=== PATIENT | male | born 1955 | race Caucasian/White ===

== ENCOUNTER 2019-08-14 02:11 | Outpatient (CLI) | payer OTHER, SELFPAY ==
--- NOTE | 2019-08-14 | DI.CTLCSR_ITS ---
EXAM: CT CHEST LUNG CANCER SCREEN CLINICAL HISTORY: The patient reportedly has a History of Smoking 30 pack years and presently smokes or has quit the past 15 years. TECHNIQUE: Imaging Protocol: Axial computed tomography images with coronal and sagittal reformatted images were created and reviewed COMPARISON: No exams were available for comparison FINDINGS: Tracheobronchial tree: Patent . Mediastinum and Kait: No dominant adenopathy or fluid collection. Pulmonary parenchyma: No consolidation or dominant measurable mass. Linear atelectasis or scarring in the right middle lobe. Lung Nodules: 4 millimeter peripheral right upper lobe nodule. There are few other scattered nodules measuring 3 millimeters or less.. No significant emphysematous changes are visible. Pleura: No effusion or pneumothorax. Heart: The heart is not dilated. Coronary artery calcifications are seen. Aorta: Thoracic aorta non-dilated.Mild calcification Upper abdomen: Unremarkable. Bones: Bilateral shoulder prostheses. Advanced degenerative changes in the thoracic spine. Soft Tissues: Mild bilateral gynecomastia.. IMPRESSION: Lung RADS Cat 1 - Negative: No nodules and definitely benign nodules Lung-RADS 1.0 CATEGORIES: Category 0 - Prior chest CT exam(s) being located for comparison. Category 1 - Annual screening in 12 months. No nodules or definitely benign nodules. Category 2 - Annual screening in 12 months. Benign appearance. Nodules with low likelihood of becomin g active cancer. Category 3 - 6-month follow-up. Probably benign. Short-term follow-up suggested. Nodules with low lik elihood of becoming active cancer. Category 4A - 3-month follow-up and CT/PET if >8 mm in size. Suspicious finding. Findings which requi re additional testing. Category 4B - Findings which require additional testing and tissue sampling. Suspicious finding. C Added to Any of the Above - History of prior lung cancer screening. S Added to Any of the Above - Significant unexpected other finding. RADIATION DOSE DELIVERED: Total DLP DATA REPOSITORY: All CT scans at this facility are submitted to the National Radiology Data Registry (NRDR) Dose Index Registry (DIR) with the [employer] (ACR). RADIATION OPTIMIZATION: All CT scans at this facility use at least one of these dose optimization te chniques: automated exposure control; mA and/or kV adjustment per patient size (includes targeted exa ms where dose is matched to clinical indication); or iterative reconstruction.
== END 2019-08-14 02:31 ==
PROVIDERS: PCP Nurse Practitioner Family; Visit Provider Nurse Practitioner Primary Care
DX: Z12.2 Encounter for screening for malignant neoplasm of respiratory organs (principal); F17.210 Nicotine dependence, cigarettes, uncomplicated; R91.8 Other nonspecific abnormal finding of lung field
CPT/HCPCS: G0297

== ENCOUNTER 2019-10-25 10:44 | Emergency (ER) | payer OTHER, SELFPAY ==
[2019-10-25] VITALS (17 sets, daily range): BP systolic 139–192; BP diastolic 70–89; PULSE 59–70; RESP 13–20; TEMP 36.1; O2SAT 91–97
--- NOTE | 2019-10-25 10:54 | ED.GENADUL_ITS ---
Discharge Plan Disposition Patient Disposition: HOME Condition: Stable Discharge Details Chief Complaint: Allergic Clinical Impression: Allergic reaction to insect sting Primary Care Provider: Fanta Guerrero ED Provider: Noe Cai Home Meds and New Rx's Prescriptions: New prednisone 20 mg tablet 40 mg PO DAILY 5 Days Qty: 10 RF: 0 Discharge Instructions Instructions: Insect Bite or Sting (ED) Additional Instructions: Please take prednisone as prescribed. You may use Benadryl at night if needed for itching. Return if you have difficulty swallowing or breathing, worsening swelling, or any other acute concerns. Medical Decision Making 64-year-old male reports stinging insect such as wasp that stung him in the right neck prior to arrival. Is a history of allergic reactions in the past and therefore seeks evaluation. He arrives with slight hypertension, otherwise reassuring vital signs, mild erythema and swelling to the right neck but no intraoral findings and no respiratory compromise. IV access established, patient given small fluid bolus, parenteral steroids and antihistamines and was observed. He improved. No dyspnea or wheezing. I will place him on a small burst of steroids to prevent recrudescence of disease. He understands homecare as well as indications to seek reevaluation. HPI General Mode of arrival: ambulatory . Date/Time Provider Initiated Documentation: 10/25/19 10:49 . Limitations to Documentation: no limitations . Information obtained by: patient . History of Present Illness 64 year old M presents to the emergency department with the chief complaint of Bee sting right neck with swelling, described as moderate, Quality is described as dull and constant, and is localized to the neck and right. Patient reports no radiation. Patient started experiencing this minute(s) and it has been constant. No relieving factors improve symptom(s), No exacerbating factors reported . Patient did receive the following treatments prior to arrival, none Related Data Home Medications Medication Instructions Recorded Confirmed prednisone 40 mg PO DAILY 5 Days #10 tab 10/25/19 Previous Rx's Medication Instructions Recorded prednisone 40 mg PO DAILY 5 Days #10 tab 10/25/19 Allergies Allergy/AdvReac Type Severity Reaction Status Date / Time bees Allergy Uncoded 10/25/19 10:52 General Stated Complaint: Allergic KVNG: 3 Review of Systems Narrative: 6 systems reviewed and otherwise negative Exam Narrative Exam Narrative: GEN: awake, alert, oriented 3. Pleasant, well groomed, in teractive. HEAD: Normocephalic, atraumatic ENT: Mucous membranes moist, oropharynx unremarkable, External ear exam unremarkable EYES: PERRL, EOMI NECK: Full ROM, no VENU, no menigismus. Mild erythematous region right neck with trace swelling. CHEST/RESP: Nontender, clear to auscultation bilateral, no wheeze/rhonchi/rales CARDIOVASCULAR: RRR, no murmur, rub ricky. 2+ Rad pulse bilateral ABDOMEN: Soft, nontender, no mass. +Bowel sounds EXT: Full ROM, no edema, no rash Neuro: Grossly normal neurologic exam, conversant, interactive. Psych: Speech fluent, thoughts congruent, affect normal Course Vital Signs Vital signs: Vital Signs Temperature 36.1 C L 10/25/19 10:47 Pulse 70 10/25/19 10:47 Respiratory Rate 16 10/25/19 10:47 Blood Pressure 192/89 H 10/25/19 10:47 Pulse Oximetry 96 10/25/19 10:47 Temperature 36.1 C L 10/25/19 10:47 Temperature Source Skin 10/25/19 10:47 Pulse 70 10/25/19 10:47 Respiratory Rate 16 10/25/19 10:47 Respiratory Effort Non-Labored 10/25/19 10:47 Blood Pressure 192/89 H 10/25/19 10:47 Blood Pressure Position Supine 10/25/19 10:47 Pulse Oximetry 96 10/25/19 10:47 Oxygen Delivery Method Room Air 10/25/19 10:47 Oxygen Flow Rate 0 10/25/19 10:47 Pain Level 5 10/25/19 10:47
[2019-10-25] MEDS: Normal Saline 1,000 ML 1000 ML IV (10:55)
[2019-10-25] MEDS: methylPREDNISolone SUCC 125 MG VIAL IVP (11:03)
[2019-10-25] MEDS: diphenhydrAMINE 50 MG/ML VIAL 25 MG IVP (11:04)
[2019-10-25] MEDS: Loratidine 10 MG TAB PO (11:05)
== END 2019-10-25 12:25 | disposition home or self-care (01) ==
PROVIDERS: Emergency Provider Emergency Medicine; PCP Nurse Practitioner Primary Care
DX: T63.441A Toxic effect of venom of bees, accidental (unintentional), initial encounter (principal); R22.1 Localized swelling, mass and lump, neck
CPT/HCPCS: 96361; 96374; 96375; 99284; J1200; J2930

== ENCOUNTER 2020-06-30 17:09 | Emergency (ER) | payer OTHER, SELFPAY ==
[2020-06-30] VITALS (19 sets, daily range): BP systolic 129–170; BP diastolic 68–83; PULSE 67–81; RESP 13–29; TEMP 36.1; O2SAT 91–96
--- NOTE | 2020-06-30 17:15 | DI.CT_ITS ---
EXAM: CT CHEST PE CTA CLINICAL HISTORY: R lung pain, Covid +. TECHNIQUE: Imaging Protocol: CT angiography of the chest was performed using pulmonary embolus lena col. Multi planar reconstructions were performed. CONTRAST MATERIAL: Intravenous: Omnipaque 350 Contrast volume: 77 cc COMPARISON: CT CT CHEST LUNG CANCER SCREEN from 08/14/2019 FINDINGS: CHEST: PULMONARY ARTERIES: There are no intraluminal filling defects to suggest acute pulmonary emboli. LUNGS: There are new patchy infiltrates throughout both lung driscoll involving all lobes, not present on the prior CT scan of August 2019.. There are no associated pleural effusions on either side. There are no significant focal findings in the trachea and mainstem bronchi. MEDIASTINUM: There is no hilar nor mediastinal adenopathy. Visualized thyroid unremarkable. CARDIAC: Heart size is normal. There is no pericardial effusion.Caliber of the thoracic aorta is wit hin normal limits. There is no evidence of shift of the interventricular septum. PARTIALLY VISUALIZED UPPERMOST ABDOMEN: No obvious findings OSSEOUS: No significant osseous lesions.Bilateral shoulder prostheses.. IMPRESSION: 1. Compared to the prior CT scan of August 2019 there are now prominent bilateral areas of infiltrate t hroughout both lung driscoll as described above, not associated with pleural effusions nor intrathoraci c lymphadenopathy..Recommend testing for Covid-19 RADIATION DOSE DELIVERED: LINK-TO-SR Total DLP DATA REPOSITORY: All CT scans at this facility are submitted to the National Radiology Data Registry (NRDR) Dose Index Registry (DIR) with the [employer] (ACR). RADIATION OPTIMIZATION: All CT scans at this facility use at least one of these dose optimization te chniques: automated exposure control; mA and/or kV adjustment per patient size (includes targeted exa ms where dose is matched to clinical indication); or iterative reconstruction.
--- NOTE | 2020-06-30 17:15 | RT.EKG_ITS ---
APPROVED REPORT Exam: Resting ECG Patient Location: E HR:71 bpm ECG Measurements Heart Rate 71 AXIS MN 140 P 43 QRSd 83 QRS 21 QT 379 T 3 QTc 412 Conclusion Sinus rhythm.. wandering baseline
--- NOTE | 2020-06-30 17:23 | NUR.NOTE ---
Nursing Note: [id number] GIRLFR)
--- NOTE | 2020-06-30 17:33 | W.ED.GENAD ---
Discharge Plan Disposition Patient Disposition: HOME Condition: Stable Discharge Details Clinical Impression: Pneumonia due to COVID-19 virus Primary Care Provider: Fanta Guerrero ED Provider: Ki Scott Home Meds and New Rx's Prescriptions: Continued atorvastatin 40 mg Tablet 40 mg PO DAILY RF: 0 venlafaxine 75 mg Capsule,Extended Release 24hr 75 mg PO DAILY RF: 0 sildenafil 100 mg Tablet 100 mg PO DAILY PRNRF: 0 allopurinol 300 mg Tablet 300 mg PO DAILY RF: 0 lisinopril 40 mg Tablet 40 mg PO DAILY RF: 0 buspirone 15 mg Tablet 15 mg PO TID RF: 0 Discharge Instructions Instructions: Pulse Oximetry (ED), COVID-19 (Coronavirus Disease 2019) (ED) Additional Instructions: Laboratory values here in the ER did not reveal any obvious emergent process. Your oxygen level has stayed in the mid 90s during her ER visit and you are not requiring any supplemental oxygen. I am sending you home with a pulse oximetry finger probe. Mwxp-lbk-fpqtacd medications such as Tylenol and/or Motrin as directed for discomfort. Plenty of fluids to avoid dehydration. Rest, keep your body the opportunity to fight this virus. Please watch for new or worsening symptoms and return to the ER for any concerns. As we discussed, your CT confirms that you have COVID-19 pneumonia. You are highly contagious, please continue to quarantine as we discussed. I would like you to contact your primary care provider tomorrow to discuss your ER evaluation and discuss outpatient reevaluation. Medical Decision Making 65-year-old gentleman with [place] history of hypertension, hyperlipidemia, gout, diagnosed with Covid on 06-20, symptoms began 06-18. He is presenting today for worsening and ongoing symptoms such as body aches, dry cough with shortness of breath, fatigue, simply not feeling well. He feels as though he should be feeling better by now. He appears well, nontoxic. Pulse in the 70s, O2 sat 95% on room air. Vital signs reveal mild tachypnea however during my evaluation there is no evidence of tachypnea. He is slightly hypertensive. Will obtain IV access, obtain CBC, CMP, EKG, single troponin, given his right sided lung pain will obtain CTA for further evaluation of potential PE. Laboratory values are unremarkable for any obvious emergent process. CTA read by radiology as no pulmonary embolism. Peripheral bilateral consolidative foci and groundglass opacities, consistent with pneumonia, likely viral-atypical. Discussed case with Dr. Cai. Patient has had symptoms for over 10 days, not a candidate for monoclonal antibodies. Instead will give 10 IV Decadron. We will also provide the patient with a finger pulse oximeter and instruct patient to return to the ER if his O2 sat drops below 90. We discussed that he is highly contagious and discussed continuing to quarantine. Patient understands that his symptoms may go on for several weeks; however, he was given strict return precautions. We discussed conservative jetx-hxc-wmdjmdo measures, resting, plenty of fluids. He will reach out to his primary care provider tomorrow to discuss his ER visit and ongoing symptoms. Medical Records Medical records reviewed: Yes I reviewed the patient's medical records. Imaging Data Radiologic Study: Attestation: I personally reviewed and interpreted this imaging study as follows: Imaging: X-Ray Radiologist's impression: No PE. Peripheral bilateral consolidative foci in groundglass opacities, consistent with pneumonia, likely atypical-viral. Lab Data Lab results reviewed: Yes I reviewed the patient's lab results. Lab results narrative: Laboratory Tests Range/Units 06/30/20 06/30/20 17:35 17:35 WBC (4.4-10.8) 10^3/uL 4.16 L RBC (4.36-5.78) 10^6/uL 4.26 L Hgb (13.5-17.5) g/dL 12.8 L Hct (40.0-50.0) % 38.3 L MCV (80-95) fL 89.9 MCH (27.0-33.0) pg 30.0 MCHC (32.0-36.0) % 33.4 RDW (11.8-14.1) % 12.3 Plt Count (130-400) 10^3/uL 174 MPV (8.0-11.0) fL 10.2 Immature Gran % 0.5 Neutrophils % 67.6 Lymphocytes % 19.7 Monocytes % 11.3 Eosinophils % 0.7 Basophils % 0.2 Nucleated RBC % % 0 Absolute Neutrophils (1.2-6.7) 10^3/uL 2.81 Absolute Lymphocytes (1.2-3.4) 10^3/uL 0.82 L Absolute Monocytes (0.1-0.8) 10^3/uL 0.47 Absolute Eosinophils (0.0-0.7) 10^3/uL 0.03 Absolute Basophils (0.0-0.2) 10^3/uL 0.01 Sodium (136-145) mmol/L 138 Potassium (3.5-5.1) mmol/L 4.4 Chloride (98-107) mmol/L 101 Carbon Dioxide (21.0-32.0) mmol/L 27.2 Anion Gap (3-11) mmol/L 9.8 BUN (7-18) mg/dL 19 H Creatinine (0.70-1.30) mg/dL 1.0 Estimated GFR/1.73 m2 (mL/min/1.73m2) >= 60.00 Glucose (74-106) mg/dL 101 Calcium (8.5-10.1) mg/dL 8.2 L Total Bilirubin (0.2-1.0) mg/dL 0.4 AST (15-37) U/L 38 H ALT (16-63) U/L 38 Alkaline Phosphatase (46-116) U/L 132 H Troponin I (<0.06) ng/mL < 0.05 Total Protein (6.4-8.2) g/dL 7.3 Albumin (3.4-5.0) g/dL 3.5 ECG Data Attestation: I personally reviewed and interpreted this ECG (s) as follows: Interpretation: Please see official report by Dr. Cai. Sinus rhythm, ventricular to 71. HPI General Mode of arrival: ambulatory. Date/Time Provider Initiated Documentation: 06/30/20 17:11. Limitations to Documentation: no limitations. Information obtained by: patient. HPI Narrative: This is a 65-year-old gentleman with [place] history of hyperlipidemia, hypertension, gout, presenting to the ER for evaluation. He states that he developed symptoms on 06-18-20 that included mild headache and body aches. He subsequently was tested for Covid on 06-20 and tested positive. He states that since that time he feels as though his symptoms are worsening rather than improving. He reports anterior chest wall pain with coughing, a dry cough associated with shortness of breath, diffuse worsening body aches, and what he describes as right lung pain that travels into his back. He reports increased fatigue. He has taken lzhu-viw-utxoyvx medications with minimal relief. He denies current headache, visual changes, neck pain, chest pain, productive cough, abdominal pain, nausea, vomiting, lower back pain, change in bowel or bladder function, pain or swelling in his calves. Patient is concerned that he may be developing pneumonia on top of his Covid and believes that he likely requires antibiotics. Related Data Home Medications Medication Instructions Recorded Confirmed allopurinol 300 mg PO DAILY 10/25/19 06/30/20 atorvastatin 40 mg PO DAILY 10/25/19 06/30/20 buspirone 15 mg PO TID 10/25/19 06/30/20 lisinopril 40 mg PO DAILY 10/25/19 06/30/20 sildenafil 100 mg PO DAILY PRN 10/25/19 10/25/19 venlafaxine 75 mg PO DAILY 10/25/19 06/30/20 Allergies Allergy/AdvReac Type Severity Reaction Status Date / Time bees Allergy Uncoded 06/30/20 17:20 General Stated Complaint: RespSymp KVNG: 3 Review of Systems Constitutional Constitutional: Reports fatigue, Denies fever(s), Reports headache(s) and Denies weakness ENT Ears, Nose, Mouth, and Throat: Reports headache(s) and Denies neck pain Cardiovascular Cardiovascular: Reports chest pain and Reports dyspnea Respiratory Respiratory: Reports cough, Reports dyspnea and Denies wheezing Gastrointestinal Gastrointestinal: Denies abdominal pain, Denies nausea and Denies vomiting Musculoskeletal Musculoskeletal: Reports back pain, Reports myalgias, Denies neck pain, Denies numbness and Denies tingling Integumentary/Breasts Skin/Breast: Denies rash Neurologic Neurologic: Reports headache(s), Denies numbness, Denies tingling and Denies weakness Endocrine Endocrine: Reports fatigue Allergic/Immunologic Allergic/Immunologic: Denies wheezing [facility] Social History Smoking/Tobacco Use Status: Former Tobacco Use Smoking risk assessment performed?: Yes Alcohol Intake: former Drug use: Never Substance use type: does not use Do you feel safe at home: Yes Do you feel safe in your relationship?: Yes Exam Const General: cooperative, healthy appearing, comfortable and no acute distress Orientation: alert, awake and oriented x3 HENMT Head: normal to inspection, normocephalic and atraumatic Eyes General: appearance normal, both eyes and all related structures Conjunctivae: conjunctivae normal Sclera: sclerae normal Neck Neck: normal visual inspection, full ROM, no meningeal signs, trachea midline, supple and nontender Resp Effort & Inspection: normal respiratory effort and able to speak in complete sentences Auscultation: diminished lung sounds bilaterally (Bases, minimally) Cardio Rate: regular rate Rhythm: regular rhythm GI Palpation: soft and nontender Back/Spine/Pelvis Back: No back tenderness Skin General skin exam: no rashes or lesions noted Neuro General: patient alert, patient awake, moves all extremities and no focal motor deficits Cognition: normal cognition Speech: speech normal Gait: normal gait Sensory Exam: no sensory deficits noted Extrem General: normal to inspection, full ROM, capillary refill normal, no pedal edema and no calf tenderness Psych Appearance: grossly normal Mental Status: mental status grossly normal Course Vital Signs Vital signs: Vital Signs Temperature 36.1 C L 06/30/20 17:16 Pulse 78 06/30/20 17:16 Respiratory Rate 28 H 06/30/20 17:16 Blood Pressure 170/74 H 06/30/20 17:16 Pulse Oximetry 95 06/30/20 17:16 Temperature 36.1 C L 06/30/20 17:16 Temperature Source Skin 06/30/20 17:16 Pulse 78 06/30/20 17:16 Respiratory Rate 28 H 06/30/20 17:16 Respiratory Effort Non-Labored 06/30/20 17:24 Respiratory Depth Normal 06/30/20 17:24 Blood Pressure 170/74 H 06/30/20 17:16 Blood Pressure Position Sitting 06/30/20 17:16 Pulse Oximetry 95 06/30/20 17:16 Oxygen Delivery Method Room Air 06/30/20 17:16 Oxygen Flow Rate 0 06/30/20 17:16 Pain Level 10 06/30/20 17:16
[2020-06-30 17:44] LABS: Abs Immature Grans 0.02 10^3/uL (0.0-0.06); Absolute Basophil Count 0.01 10^3/uL (0.0-0.2); Absolute Eosinophil Count 0.03 10^3/uL (0.0-0.7); Absolute Lymphocyte Count 0.82 10^3/uL (1.2-3.4); Absolute Monocyte Count 0.47 10^3/uL (0.1-0.8); Absolute Neutrophil Count 2.81 10^3/uL (1.2-6.7); Basophils % 0.2; Eosinophils % 0.7; HCT 38.3 % (40.0-50.0); HGB 12.8 g/dL (13.5-17.5); Immature Grans % 0.5; Lymphocytes % 19.7; MCHC 33.4 % (32.0-36.0); MCV 89.9 fL (80-95); MPV 10.2 fL (8.0-11.0); Monocytes % 11.3; Neutrophils % 67.6; Nucleated RBC 0 %; Platelet Count 174 10^3/uL (130-400); RBC 4.26 10^6/uL (4.36-5.78); RDW 12.3 % (11.8-14.1); RDW-SD 40.8 fL; WBC 4.16 10^3/uL (4.4-10.8)
[2020-06-30] MEDS: Normal Saline 1,000 ML 1000 ML IV (17:57)
[2020-06-30 18:11] LABS: ALT 38 U/L (16-63); AST 38 U/L (15-37); Albumin 3.5 g/dL (3.4-5.0); Alkaline Phosphatase 132 U/L (46-116); Anion Gap 9.8 mmol/L (3-11); BUN 19 mg/dL (7-18); Bilirubin, Total 0.4 mg/dL (0.2-1.0); CO2 27.2 mmol/L (21.0-32.0); Calcium 8.2 mg/dL (8.5-10.1); Chloride 101 mmol/L (98-107); Glucose 101 mg/dL (74-106); Potassium 4.4 mmol/L (3.5-5.1); Sodium 138 mmol/L (136-145); Total Protein 7.3 g/dL (6.4-8.2)
[2020-06-30 18:16] LABS: Troponin I < 0.05 ng/mL (<0.06)
[2020-06-30] MEDS: Omnipaque 350 MG/ML 100 ML BTL IJ (18:45)
[2020-06-30] MEDS: Normal Saline - Diluent 50 ML VIAL IV (18:46)
[2020-06-30] MEDS: Normal Saline Flush 10 ML SYR IVP (18:46)
--- NOTE | 2020-06-30 19:02 | DI.VRAD_ITS ---
PROCEDURE INFORMATION: Exam: CT Angiography Chest With Contrast Exam date and time: 06/30/2020 6:43 PM Age: 65 years old Clinical indication: Right-sided chest pain; Patient HX: R lung pain covid + TECHNIQUE: Imaging protocol: Computed tomographic angiography of the chest with contrast. 3D rendering (Not supervised by radiologist): MIP and/or 3D reconstructed images were created by the technologist. Radiation optimization: All CT scans at this facility use at least one of these dose optimization techniques: automated exposure control; mA and/or kV adjustment per patient size (includes targeted exams where dose is matched to clinical indication); or iterative reconstruction. Contrast material: OMNIPAQUE 350; Contrast volume: 77 ml; Contrast route: INTRAVENOUS (IV); COMPARISON: CT CHEST LUNG CANCER SCREEN 08/14/2019 1:29 PM FINDINGS: Pulmonary arteries: Normal. No pulmonary emboli. Aorta: Unremarkable. No aortic aneurysm. No aortic dissection. Lungs: Patchy peripheral consolidation and ground-glass opacities. Pleural spaces: Unremarkable. No pneumothorax. No pleural effusion. Heart: Unremarkable. No cardiomegaly. No pericardial effusion. Lymph nodes: Unremarkable. No enlarged lymph nodes. Bones/joints: Bilateral shoulder chandrika arthroplasties. Mjpu-sw-brmltnpv multilevel thoracic spondylosis. No acute fracture or focal suspicious osseous lesion. Soft tissues: Unremarkable. IMPRESSION: 1. No pulmonary embolism. 2. Peripheral bilateral consolidative foci and ground-glass opacities, consistent with pneumonia, likely viral/atypical. Dictated and Authenticated by: Paulino Herrera MD. Ordering:ASIM Emerson MD
[2020-06-30] MEDS: Dexamethasone 10 MG/ML VIAL IVP (19:30)
== END 2020-06-30 19:30 | disposition home or self-care (01) ==
PROVIDERS: Emergency Provider Physician Assistant; PCP Nurse Practitioner Primary Care
DX: U07.1 COVID-19 (principal); J12.82 Pneumonia due to coronavirus disease 2019; M79.10 Myalgia, unspecified site; R53.83 Other fatigue
CPT/HCPCS: 36415; 71275; 80053; 93005; 96361; 96374; 99285; 84484; 85025; 93010; J1100; J3490

== ENCOUNTER 2022-01-22 16:55 | Emergency (ER) | payer MEDICARE, SELFPAY ==
[2022-01-22 17:42] VITALS: BP 135/69; PULSE 82; RESP 18; TEMP 36.7; O2SAT 96
--- NOTE | 2022-01-22 18:18 | ED.GENADUL_ITS ---
Discharge Plan Disposition Patient Disposition: HOME Condition: Stable Discharge Details Clinical Impression: Visit for suture removal Primary Care Provider: Fanta Guerrero ED Provider: Becki Potts Home Meds and New Rx's Prescriptions: Continued atorvastatin 40 mg Tablet 40 mg PO DAILY venlafaxine 75 mg Capsule,Extended Release 24hr 75 mg PO DAILY sildenafil 100 mg Tablet 100 mg PO DAILY PRN allopurinol 300 mg Tablet 300 mg PO DAILY lisinopril 40 mg Tablet 40 mg PO DAILY buspirone 15 mg Tablet 15 mg PO TID Discharge Instructions Instructions: Stitches Removal (ED) Additional Instructions: Cover wound with bandage if risk of contamination. You can apply topical antibiotic ointment if you notice any redness, swelling or pain. Otherwise keep the area clean and dry to allow the edges to dry and heal. Follow-up with your primary care doctor in 1 week. Return to the emergency department with any worsening or new concerning symptoms. Discharge Data Discharge Date/Time-TO BE ENTERED AT DEPARTURE: 01/22/22 18:24 Discharge Physician: Becki Potts Medical Decision Making 66-year-old male presents for suture removal of forehead after sutures placed presents with head injury while in [place] 5 days ago. There are 2 nylon and 6 Prol[address] sutures noted in place of a 5 cm linear laceration above right eyebrow. Wound appears well approximated. No signs of cellulitis. Sutures removed without difficulty but there is a slightly open area in the center with manipulation. Topical antibiotic ointment applied. Patient advised on proper wound care. Advised to follow up with the primary care doctor for re-evaluation. Usual and customary return precautions given prior to discharge. HPI General Mode of arrival: ambulatory . Date/Time Provider Initiated Documentation: 01/22/22 17:06 . Limitations to Documentation: no limitations . Information obtained by: patient . HPI Narrative: Patient currently is a 66-year-old male presents for suture removal of laceration on forehead. Patient states he was in [place] 5 days ago when he tripped while intoxicated striking his head on the cement. He states he was told to have the sutures removed in 5 days. He states he does not think he had a CT scan of his head but denies any headache. He states he has been feeling jittery at times since then but states this has improved since increasing his BuSpar. He denies any LOC, significant headache, nausea or vomiting. Related Data Home Medications Medication Instructions Recorded Confirmed allopurinol 300 mg tablet 300 mg PO DAILY 10/25/19 01/22/22 atorvastatin 40 mg tablet 40 mg PO DAILY 10/25/19 01/22/22 buspirone 15 mg tablet 15 mg PO TID 10/25/19 01/22/22 lisinopril 40 mg tablet 40 mg PO DAILY 10/25/19 01/22/22 sildenafil 100 mg tablet 100 mg PO DAILY PRN 10/25/19 01/22/22 venlafaxine 75 mg capsule,extended 75 mg PO DAILY 10/25/19 01/22/22 release 24 hr Allergies Allergy/AdvReac Type Severity Reaction Status Date / Time bees Allergy Uncoded 06/30/20 17:20 General Stated Complaint: SutureRem KVNG: 5 Review of Systems All systems reviewed & are unremarkable except as noted in HPI and below Constitutional Constitutional: Reports as per HPI, Denies chills and Denies fever(s) Eyes Eyes: Denies blurry vision ENT Ears, Nose, Mouth, and Throat: Denies dizziness, Denies sore throat and Denies throat swelling Cardiovascular Cardiovascular: Denies chest pain and Denies dyspnea Respiratory Respiratory: Denies cough and Denies dyspnea Gastrointestinal Gastrointestinal: Denies abdominal pain, Denies diarrhea and Denies vomiting Genitourinary Genitourinary: Denies hematuria and Denies dysuria Musculoskeletal Musculoskeletal: Denies back pain and Denies numbness Integumentary/Breasts Skin/Breast: Denies lesions and Denies rash Neurologic Neurologic: Denies dizziness, Denies localized weakness and Denies numbness Allergic/Immunologic Allergic/Immunologic: Denies throat swelling PFSH All Active Problems (Updated 01/22/22 @ 18:19 by Becki Ptots DO) Pneumonia due to COVID-19 virus (Acute) Visit for suture removal (Acute) Social History Smoking/Tobacco Use Status: Current-Occasional Tobacco Type: cigarettes Smoking risk assessment performed?: Yes Alcohol Intake: former Drug use: Never Substance use type: does not use Do you feel safe at home: Yes Do you feel safe in your relationship?: Yes Exam Const General: cooperative and no acute distress Orientation: alert, awake and oriented x3 HENMT Head: normal to inspection Face images: 1. 5cm linear laceration noted above right eyebrow. 6 prolene sutures noted in center and 2 nylon sutures noted on ends of laceration. Edges well approximated. There is some dried crust along wound but no surrounding edema, erythema, drainage or bleeding. Eyes General: appearance normal, both eyes and all related structures Neck Neck: normal visual inspection Resp Effort & Inspection: normal respiratory effort and able to speak in complete sentences Cardio Rate: regular rate Skin General skin exam: no rashes or lesions noted Neuro General: patient alert, patient awake and patient oriented x3 Motor: muscle tone normal throughout Extrem General: normal to inspection and full ROM Psych Appearance: grossly normal Affect: normal affect Course Vital Signs Vital signs: Vital Signs Temperature 98.1 F 01/22/22 17:42 Pulse 82 01/22/22 17:42 Respiratory Rate 18 01/22/22 17:42 Blood Pressure 135/69 01/22/22 17:42 Pulse Oximetry 96 01/22/22 17:42 Temperature 98.1 F 01/22/22 17:42 Temperature Source Tympanic 01/22/22 17:42 Pulse 82 01/22/22 17:42 Respiratory Rate 18 01/22/22 17:42 Respiratory Effort 01/22/22 17:46 Blood Pressure 135/69 01/22/22 17:42 Blood Pressure Position Sitting 01/22/22 17:42 Pulse Oximetry 96 01/22/22 17:42 Oxygen Delivery Method Room Air 01/22/22 17:42 Oxygen Flow Rate 0 01/22/22 17:42 Pain Level 2 01/22/22 17:42 PAWSS Have you Been Recently Intoxicated or Drunk Within the Last 30 days?: Yes Have you Ever Experienced Previous Episodes of Alcohol Withdrawal?: No Have you ever Experienced Withdrawal Seizures?: No Have you ever Experienced Delirium Tremens(DT)s?: No Have you ever undergone Alcohol Rehabilitation Treatment (i.e, inpt ot outpa tient treatment programs)?: No Have you ever Experienced Blackouts?: No Have you ever Combined Alcohol with other Downers within the last 90 days?: No Have you ever Combined Alcohol with any other Substance of Abuse during the last 90 days?: No Positive Blood Alcohol level on Presentation? [PCS.BAL]: No Evidence of Increased Autonomic Activity (i.e. HR>120, tremor, sweating, ag itation, nausea)?: No Result: 1
[2022-01-22] MEDS: Bacitracin 1 PACKET (18:19)
== END 2022-01-22 18:24 | disposition home or self-care (01) ==
PROVIDERS: Emergency Provider Physician Assistant; PCP Nurse Practitioner Primary Care
DX: S01.111D Laceration without foreign body of right eyelid and periocular area, subsequent encounter (principal); W01.198D Fall on same level from slipping, tripping and stumbling with subsequent striking against other object, subsequent encounter; Z48.02 Encounter for removal of sutures
CPT/HCPCS: 99283; 99284

== ENCOUNTER 2022-08-18 10:36 | Emergency (ER) | payer OTHER, SELFPAY ==
[2022-08-18 10:39] VITALS: BP 150/76; PULSE 66; RESP 18; TEMP 36.7; O2SAT 96
--- NOTE | 2022-08-18 10:53 | ED.GENADUL_ITS ---
Discharge Plan Disposition Patient Disposition: Home Discharge Details Clinical Impression: Infected tick bite of lower back Primary Care Provider: Cyndi Tavares ED Provider: Lloyd Reyna Home Meds and New Rx's Prescriptions: New doxycycline hyclate 100 mg capsule 100 mg PO BID Qty: 10 0RF Continued atorvastatin 40 mg Tablet 40 mg PO DAILY venlafaxine 75 mg Capsule,Extended Release 24hr 75 mg PO DAILY sildenafil 100 mg Tablet 100 mg PO DAILY PRN allopurinol 300 mg Tablet 300 mg PO DAILY lisinopril 40 mg Tablet 40 mg PO DAILY buspirone 15 mg Tablet 15 mg PO TID Discharge Instructions Instructions: Tick Bite (ED) Additional Instructions: Please read all of the information that accompanies these instructions. You were seen in the emergency department for your tick bite. You are receiving antibiotics which you should take as directed. Please schedule an appointment with your primary care provider later this week. Please return to the emergency department if if you develop fevers or any shortness of breath. As we discussed, this medication makes you quite sensitive to the sun. Please wear garvin nscreen and a hat and cover up while taking this medication. Discharge Data Discharge Date/Time-TO BE ENTERED AT DEPARTURE: 08/18/22 11:33 Medical Decision Making This is an overall very well-appearing afebrile and not tachycardic 67-year-old male with right lower back tick bite with surrounding local site infection for which he will receive treatment for cellulitis and treatment for early localized Lyme disease though there is not clearly a rash consistent with erythema migrans. No shortness of breath or palpitations to suggest Lyme carditis. Nontoxic-appearing so doubt babesiosis. No indication to surgically excise mouthparts. I have advised twice daily warm compresses and given patient return indications including any worsening pain or swelling which could indicate abscess. At the moment there is no fluctuance to suggest abscess. No pain out of proportion to suggest necrotizing soft tissue infection. No fevers to suggest early disseminated Lyme disease. I counseled the patient on covering himself up on doxycycline which he will take for the next 10 days given increased photosensitivity. I advised wearing a hat and wearing sunscreen. I also advised ED return if he developed fevers or shortness of breath. Otherwise I advised outpatient PMD follow-up later this week as needed. HPI General Date/Time Provider Initiated Documentation: 05/09/23 10:53 . HPI Narrative: This is a 67-year-old male who was in [place] over the weekend and walking on the grass but not in the sloan. Yesterday he noticed a tick on his right flank. His girlfriend attempted to remove it and felt that they could not get the tick all the way out. He has had some mild surrounding erythema and swelling. He has had no fevers chest pain or any shortness of breath. He has not had any syncope. He denies dysuria frequency pain. He has not noticed any other tick bites. Related Data Home Medications Medication Instructions Recorded Confirmed allopurinol 300 mg tablet 300 mg PO DAILY 10/25/19 08/18/22 atorvastatin 40 mg tablet 40 mg PO DAILY 10/25/19 08/18/22 buspirone 15 mg tablet 15 mg PO TID 10/25/19 08/18/22 lisinopril 40 mg tablet 40 mg PO DAILY 10/25/19 08/18/22 sildenafil 100 mg tablet 100 mg PO DAILY PRN 10/25/19 08/18/22 venlafaxine 75 mg capsule,extended 75 mg PO DAILY 10/25/19 08/18/22 release 24 hr doxycycline hyclate 100 mg capsule 100 mg PO BID #10 caps 08/18/22 Previous Rx's Medication Instructions Recorded doxycycline hyclate 100 mg capsule 100 mg PO BID #10 caps 08/18/22 Allergies Allergy/AdvReac Type Severity Reaction Status Date / Time bees Allergy Uncoded 08/18/22 10:42 General Stated Complaint: InsectBite KVNG: 4 PFSH All Active Problems (Updated 08/18/22 @ 11:22 by Lloyd Reyna MD) Pneumonia due to COVID-19 virus (Acute) Infected tick bite of lower back (Acute) Social History Smoking/Tobacco Use Status: Former Tobacco Use Smoking risk assessment performed?: Yes Alcohol Intake: former Drug use: Never Substance use type: does not use Do you feel safe at home: Yes Do you feel safe in your relationship?: Yes Exam Narrative Exam Narrative: General: Well-appearing in no acute distress speaking in complete sentences. Head: Normocephalic, atraumatic. Eye: Pupils equal, round reactive to light. Extraocular eye movements intact. No conjunctival injection. No scleral icterus. Ear, nose, mouth, throat: Grossly normal inspection. Normal voice, handling secretions normally. Neck: Trachea midline. Cardiovascular: Well-perfused distal extremities. Respiratory: Nonlabored respiration. Gastrointestinal: Nondistended abdomen. Back: On the patient's right flank there is an infected tick bite with mild surrounding erythema measuring approximately 2 cm in diameter. No fluctuance. There may be some retained mouthparts from a tick. Musculoskeletal: No edema. Moving all 4 extremities spontaneously. Skin: Normal for age and race, grossly normal temperature and turgor. No acute rash. Neurologic: Alert and appropriate, no apparent acute deficits. Psychiatric: Mood and manner are appropriate. Grooming and personal hygiene are appropriate. Course Vital Signs Vital signs: Vital Signs Temperature 36.7 C 08/18/22 10:39 Pulse 66 08/18/22 10:39 Respiratory Rate 18 08/18/22 10:39 Blood Pressure 150/76 H 08/18/22 10:39 Pulse Oximetry 96 08/18/22 10:39 Temperature 36.7 C 08/18/22 10:39 Temperature Source Oral 08/18/22 10:39 Pulse 66 08/18/22 10:39 Respiratory Rate 18 08/18/22 10:39 Respiratory Effort Normal 08/18/22 10:43 Blood Pressure 150/76 H 08/18/22 10:39 Blood Pressure Position Sitting 08/18/22 10:39 Pulse Oximetry 96 08/18/22 10:39 Oxygen Delivery Method Room Air 08/18/22 10:39 Oxygen Flow Rate 0 08/18/22 10:39 Pain Level 0 08/18/22 10:39
[2022-08-18] MEDS: Doxycycline Hyclate 100 MG CAP PO (11:31)
== END 2022-08-18 11:33 | disposition home or self-care (01) ==
PROVIDERS: Emergency Provider Emergency Medicine; PCP Physician Assistant
DX: W57.XXXA Bitten or stung by nonvenomous insect and other nonvenomous arthropods, initial encounter; S30.860A Insect bite (nonvenomous) of lower back and pelvis, initial encounter; L03.312 Cellulitis of back [any part except buttock and flank]
CPT/HCPCS: 99283